=== PATIENT | female | born 1955 | race Caucasian/White ===

== ENCOUNTER 2022-09-22 10:23 | Outpatient (CLI) | payer MEDICARE, BC, SELFPAY ==
[2022-09-22 16:25] LABS: Basophils Absolute Auto 0.02 K/uL (0.00-0.30); Basophils Percent Auto 0.4 % (0.0-3.0); Hemoglobin* 13.9 gm/dL (12.0-16.0); Lymphocytes Absolute Auto 1.91 K/uL (0.90-2.90); Lymphocytes Percent Auto 34.9 % (20-44); Mean Corpuscular HGB Conc 33 gm/dL (32-36); Mean Corpuscular Hemoglobin 30 pg (26-34); Mean Corpuscular Volume 92 fL (80-100); Monocytes Percent Auto 6.6 % (0.0-11.0); Neutrophils Absolute Auto 3.18 K/uL (1.7-7.0); Neutrophils Percent Auto 58.1 % (42.0-72.0); Platelet Count* 200 K/uL (140-440); RDW Coefficient of Variation % 11.7 % (11.5-15.5); Red Blood Count 4.59 m/uL (4.00-5.20); White Blood Count* 5.47 K/uL (4.50-11.00)
[2022-09-22 16:34] LABS: Slide Review Reflex No
[2022-09-22 16:36] LABS: Cholesterol* 129 mg/dL (90-199); Glucose* 84 mg/dL (60-115); HDL Cholesterol* 47 mg/dL (>=50); LDL Cholesterol Calculated 63 mg/dL (<100); Triglycerides* 93 mg/dL (40-149)
[2022-09-22 17:27] LABS: Vitamin B12* 330 pg/mL (243-894)
== END 2022-09-22 10:24 | disposition home or self-care (01) ==
PROVIDERS: PCP Nurse Practitioner Family; Visit Provider Nurse Practitioner Family
DX: E78.5 Hyperlipidemia, unspecified (principal); R20.0 Anesthesia of skin; D64.9 Anemia, unspecified; Z86.2 Personal history of diseases of the blood and blood-forming organs and certain disorders involving the immune mechanism; Z13.1 Encounter for screening for diabetes mellitus
CPT/HCPCS: 80061; 82607; 82947; 85025

== ENCOUNTER 2022-10-12 14:29 | Outpatient (CLI) | payer MEDICARE, BC, SELFPAY | END 2022-10-12 14:30 | disposition home or self-care (01) | LOC: KYNREF 14:29 | PROVIDERS: PCP Nurse Practitioner Family; Visit Provider Nurse Practitioner Family | DX: R30.0 Dysuria (principal) | CPT/HCPCS: 87086 ==

== ENCOUNTER 2022-12-13 12:57 | Outpatient (CLI) | payer MEDICARE, BC, SELFPAY ==
--- NOTE | 2022-12-13 13:00 | CRLHL7_ITS ---
For Patients: As a result of the Century Cures Act, medical imaging exams and procedure reports are released immediately into your electronic medical record. You may view this report before your referring provider. If you have questions, please contact your health care provider. INDICATION: Fall. Characterize scapular fracture. COMPARISON: Plain films 11 December 2022. TECHNIQUE: Multidetector imaging right shoulder with axial coronal and sagittal formats. FINDINGS: Somewhat comminuted buckling fracture of the inferior scapular blade below the spine. Inferior tip of the scapular blade is below the field of view however fracture appears to terminate prior to the inferior tip. No intra-articular extension to normal appearing glenoid with neutral version. Mild osteoarthritis narrowing and minimal spurring at the glenohumeral joint. Slight lateral downsloping of a type 2 acromion but patent acromiohumeral distance. Minor AC DJD. No clavicular fracture. 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 No rib fracture in the field of view. IMPRESSION: Mildly comminuted buckling but otherwise nondisplaced fracture of the inferior scapular blade. Please note that all CT scans at this facility use dose modulation, iterative reconstruction, and/or weight-based dosing when appropriate to reduce radiation dose to as low as reasonably achievable. Dictated by Sameer Sullivan MD @ 12/13/2022 2:25:01 PM (Electronically Signed)
== END 2022-12-13 12:58 | disposition home or self-care (01) ==
PROVIDERS: PCP Nurse Practitioner Family; Visit Provider Physician Assistant
DX: M25.511 Pain in right shoulder (principal); S42.101A Fracture of unspecified part of scapula, right shoulder, initial encounter for closed fracture
CPT/HCPCS: 73200

== ENCOUNTER 2023-10-12 10:57 | Outpatient (CLI) | payer MEDICARE, BC, SELFPAY | END 2023-10-12 10:58 | disposition home or self-care (01) | PROVIDERS: PCP Nurse Practitioner Family; Visit Provider Nurse Practitioner Family | DX: Z00.00 Encounter for general adult medical examination without abnormal findings (principal); E78.5 Hyperlipidemia, unspecified; R30.9 Painful micturition, unspecified; Z13.0 Encounter for screening for diseases of the blood and blood-forming organs and certain disorders involving the immune mechanism; Z13.228 Encounter for screening for other metabolic disorders | CPT/HCPCS: 80053; 80061; 81015; 85025; 87086 ==

== ENCOUNTER 2023-12-25 14:56 | Outpatient (CLI) | payer MEDICARE, BC, SELFPAY | END 2023-12-25 14:57 | disposition home or self-care (01) | LOC: NFLDREF 12-28 08:37 | PROVIDERS: PCP Nurse Practitioner Family; Referring Provider Nurse Practitioner Family; Visit Provider Nurse Practitioner Family | DX: R39.9 Unspecified symptoms and signs involving the genitourinary system (principal) | CPT/HCPCS: 81001; 87086 ==

== ENCOUNTER 2024-12-23 08:56 | Outpatient (CLI) | payer MEDICARE, BC, SELFPAY | END 2024-12-23 08:57 | disposition home or self-care (01) | PROVIDERS: PCP Nurse Practitioner Family; Visit Provider Nurse Practitioner Family | DX: E78.5 Hyperlipidemia, unspecified (principal); Z13.0 Encounter for screening for diseases of the blood and blood-forming organs and certain disorders involving the immune mechanism | CPT/HCPCS: 80053; 80061; 85025 ==